=== PATIENT | female | born 1985 | race Two or more races ===

== ENCOUNTER 2018-07-22 12:05 | Observation (INO) | payer MEDICAID ==
[~2018-07-22] VITALS: Ht 152.4 cm; Wt 75.7 kg
[2018-07-22] MEDS ORDERED: LACTATED RINGER'S 1,000 ML IV ONE (13:06)
[2018-07-22] MEDS ORDERED: FERR-7 PO (13:10)
[2018-07-22] MEDS ORDERED: PREN-96 PO (13:10)
[2018-07-22] MEDS ORDERED: TERBUTALINE SULFATE 1 MG/ML 1ML VIAL SC SCH (13:15)
[2018-07-22 14:10] LABS: Urine Amorphous Crystal FEW /hpf (None Seen); Urine Bacteria FEW /hpf (None Seen); Urine Blood Negative /uL (Negative); Urine Specific Gravity 1.003 (1.001-1.035); Urine WBC 2 /hpf (0 - 5)
[2018-07-22 14:18] LABS: Alcohol, Urine < 3.0 mg/dL (0-5); Amphetamine Screen, Urine NEGATIVE (NEGATIVE); Barbiturate Scree,Urine NEGATIVE (NEGATIVE); Benzodiazephine Screen, Urine NEGATIVE (NEGATIVE); Cannabinoid Screen, Urine NEGATIVE (NEGATIVE); Cocaine Screen, Urine NEGATIVE (NEGATIVE); Phencyclidine Screen, Urine NEGATIVE (NEGATIVE)
[2018-07-22 14:21] LABS: Opiate Scree,Urine NEGATIVE (NEGATIVE)
== END 2018-07-22 14:30 | disposition home or self-care (01) | DRG 566 ==
LOC: LDRP 12:05
PROVIDERS: ADMIT Obstetrics & Gynecology; ATTEND Obstetrics & Gynecology
DX: O62.9 Abnormality of forces of labor, unspecified (principal); O26.893 Other specified pregnancy related conditions, third trimester; O26.853 Spotting complicating pregnancy, third trimester; R51 Headache; R42 Dizziness and giddiness; R19.7 Diarrhea, unspecified; Z3A.35 35 weeks gestation of pregnancy
CPT/HCPCS: 59025; 80307; 81001; 81002; 96372; G0378

== ENCOUNTER 2018-08-21 10:40 | Observation (INO) | payer MEDICAID ==
[~2018-08-21 10:40] MED LIST: FERR-7 PO; PREN-96 PO
== END 2018-08-21 12:10 | disposition home or self-care (01) | DRG 566 ==
LOC: LDRP 10:40
PROVIDERS: ADMIT Obstetrics & Gynecology; ATTEND Obstetrics & Gynecology
DX: O62.9 Abnormality of forces of labor, unspecified (principal); Z3A.39 39 weeks gestation of pregnancy
CPT/HCPCS: 59025; 81002; G0378